=== PATIENT | female | born 1940 | race Caucasian/White ===

== ENCOUNTER → 2020-02-22 | Outpatient (CLI) | payer MEDICARE, OTHER ==
[~2020-02-22] MED LIST: LIDOCAINE-MPF 1%, 5ML ONE
== END | disposition home or self-care (01) ==
LOC: RAD 12:40
PROVIDERS: ATTEND Family Medicine
DX: E04.1 Nontoxic single thyroid nodule (principal)
CPT/HCPCS: 10005; 88173

== ENCOUNTER → 2020-04-03 | Outpatient (CLI) | payer MEDICARE, OTHER ==
[~2020-04-03] MED LIST changes: +ASCO100018 PO; +ASPI81TA45 PO; +CARV12.52 PO; +CHOL10003 PO; +CITA20TA6 PO; +INDA1.25 PO; -LIDOCAINE-MPF 1%, 5ML ONE; +LISI5TAB7 PO; +MULT-709 PO; +NAPR220C2 PO; +OMEG1CAP39 PO; +RALO60TA PO; +ROSU5TAB PO; +UBID100C41 PO
== END | disposition home or self-care (01) ==
LOC: STAR 11:10
PROVIDERS: ATTEND Surgery
DX: Z01.818 Encounter for other preprocedural examination (principal)
CPT/HCPCS: 71046; 93005

== ENCOUNTER → 2020-04-06 | Outpatient (CLI) | payer MEDICARE, OTHER | END | disposition home or self-care (01) | LOC: STAR 14:00 | PROVIDERS: ATTEND Anesthesiology | DX: Z01.812 Encounter for preprocedural laboratory examination (principal); Z20.828 Contact with and (suspected) exposure to other viral communicable diseases | CPT/HCPCS: 36415; 87635 ==